=== PATIENT | female | born 1975 | race Caucasian/White ===

== ENCOUNTER 2021-06-17 11:26 | Emergency (ER) | payer BC ==
[2021-06-17 12:40] LABS: HEMOGLOBIN 14.2 gm/dl (12.3-15.3); RED BLOOD COUNT 5.25 M/UL (4.00-5.10); WHITE BLOOD COUNT 11.6 K/UL (4.5-11.0)
[2021-06-17 12:57] LABS: BUN/CREATININE RATIO 12 (0-10)
[2021-06-17] MEDS ORDERED: HYDROCODON-ACE1 EAC4 PO (15:10)
[2021-06-17] MEDS ORDERED: AUGMENTIN 875-1 EACH PO (15:14)
== END 2021-06-17 15:40 | disposition home or self-care (01) ==
LOC: ER1 11:26
PROVIDERS: Nurse Practitioner
DX: K81.0 Acute cholecystitis (principal)
CPT/HCPCS: 80053; 81001; 82550; 82553; 83690; 83874; 84484; 84703; 85025; 93005; 96374; 96375; 96376; 99284; J1170; J2270; J2405; J2550; J7030; Q9967

== ENCOUNTER → 2021-07-07 | Day surgery (SDC) | payer BC ==
[~2021-07-07] MED LIST: AUGMENTIN 875-1 EACH PO; COLACE 100MG C100 MG PO; HYDROCODON-ACE1 EAC2 PO; HYDROCODON-ACE1 EAC4 PO; LEVOTHYROXINE75 MC1 PO; ZYRTEC10 M3 PO
== END | disposition home or self-care (01) ==
LOC: OR 06:32
DX: K80.12 Calculus of gallbladder with acute and chronic cholecystitis without obstruction (principal); K66.0 Peritoneal adhesions (postprocedural) (postinfection); E03.9 Hypothyroidism, unspecified; G47.30 Sleep apnea, unspecified; Z79.899 Other long term (current) drug therapy; I10 Essential (primary) hypertension; Z91.030 Bee allergy status; Z20.822 Contact with and (suspected) exposure to COVID-19
CPT/HCPCS: 84703; J0690; J1100; J1170; J1885; J2001; J2250; J2405; J2704; J2710; J3010; J7030; J7120